=== PATIENT | male | born 1990 | race African-American/Black ===

== ENCOUNTER 2018-05-16 08:23 | Emergency (ER) | payer MEDICAID ==
[~2018-05-16] VITALS: Ht 190.5 cm; Wt 85.9 kg
[2018-05-16 08:29] VITALS: Ht 190.5 cm; Wt 85.9 kg
[2018-05-16] MEDS ORDERED: AMOXICILLIN500 M1 PO (08:49)
[2018-05-16] MEDS ORDERED: NAPROSYN500 MG PO (08:49)
[2018-05-16 09:13] VITALS: BP 131/59
== END 2018-05-16 09:05 | disposition home or self-care (01) ==
LOC: D.ER 08:23
DX: J02.0 Streptococcal pharyngitis (principal); R50.9 Fever, unspecified; F17.200 Nicotine dependence, unspecified, uncomplicated

== ENCOUNTER 2018-07-12 17:01 | Emergency (ER) | payer MEDICAID ==
[~2018-07-12] VITALS: Ht 190.5 cm; Wt 72.3 kg
[~2018-07-12 17:01] MED LIST: AMOXICILLIN500 M1 PO; NAPROSYN500 MG PO
[2018-07-12 17:20] VITALS: Ht 190.5 cm; Wt 72.3 kg
[2018-07-12] MEDS ORDERED: TORADOL10 MG PO (18:42)
[2018-07-12 19:35] VITALS: BP 116/80
== END 2018-07-12 19:35 | disposition home or self-care (01) ==
LOC: D.ER 17:01
DX: M54.2 Cervicalgia (principal); S80.01XA Contusion of right knee, initial encounter; V43.62XA Car passenger injured in collision with other type car in traffic accident, initial encounter; Y93.89 Activity, other specified; Y92.410 Unspecified street and highway as the place of occurrence of the external cause; M54.5 Low back pain; F17.200 Nicotine dependence, unspecified, uncomplicated